=== PATIENT | female | born 1945 | race Caucasian/White ===

== ENCOUNTER 2017-06-28 08:46 | Day surgery (SDC) | payer OTHER ==
[~2017-06-28 08:46] MED LIST: VERSED ONE
[2017-06-28] MEDS ORDERED: NS 500 ML IV 500 ML IV ONE (09:14)
[2017-06-28] MEDS ORDERED: TETRACAINE 0.5% OPHTH 1 DOSE AFFEYE ONE ×5 (09:15→11:47)
[2017-06-28] MEDS ORDERED: VIGAMOX 0.5% OPHTH 1 DOSE AFFEYE ONE ×3 (09:20→09:30)
[2017-06-28] MEDS ORDERED: PROLENSA OPHTH 1 DOSE AFFEYE ONE (09:31)
[2017-06-28] MEDS ORDERED: ALPHAGAN-P OPHTH 1 DOSE AFFEYE ONE (09:32)
[2017-06-28] MEDS ORDERED: CYCLOGYL 1% OPHTH 1 DOSE OP ONE ×3 (09:33→09:35)
[2017-06-28] MEDS ORDERED: AK-DILATE 2.5% OPHTH 1 DOSE OP ONE ×3 (09:33→09:35)
[2017-06-28] MEDS ORDERED: MYDRIACIL OPHTH 1 DOSE AFFEYE ONE ×3 (09:33→09:35)
[2017-06-28] MEDS ORDERED: VERSED IVP ONE (11:15)
[2017-06-28] MEDS ORDERED: AK-DILATE 10% OPHTH 1 DOSE AFFEYE ONE (11:32)
[2017-06-28] MEDS ORDERED: BETADINE OPHTH SOLN 5% EACHEYE ONE (11:46)
[2017-06-28] MEDS ORDERED: VIGAMOX 0.5% AFFEYE ONE ×2 (11:48→12:04)
[2017-06-28] MEDS ORDERED: ADRENALINE CHL INJ IJ ONE (11:48)
[2017-06-28] MEDS ORDERED: XYLOCAINE-MPF 1% IJ ONE (11:48)
[2017-06-28] MEDS ORDERED: DUOVISC IO ONE (11:48)
[2017-06-28] MEDS ORDERED: BSS OPHTH (PLAIN) 500 ML with VANCOMYCIN HCL 500 MG VIAL 25 MG, ADRENALINE CHL INJ 1 MG IR ONE ×3 (11:49)
[2017-06-28 13:22] VITALS: BP 132/69
== END 2017-06-28 12:25 | disposition home or self-care (01) ==
LOC: SURG1 08:46
PROVIDERS: ATTEND Ophthalmology
PROC: 08RK3JZ Replacement of Left Lens with Synthetic Substitute, Percutaneous Approach (ICD-10-PCS; principal; 2017-06-28 12:45)
PROC: 08DK3ZZ Extraction of Left Lens, Percutaneous Approach (ICD-10-PCS; principal; 2017-06-28 12:45)
DX: H25.12 Age-related nuclear cataract, left eye (principal); H25.012 Cortical age-related cataract, left eye; H52.222 Regular astigmatism, left eye
CPT/HCPCS: 99100; J0170; J2250; J3370

== ENCOUNTER 2017-07-26 07:29 | Day surgery (SDC) | payer OTHER ==
[~2017-07-26 07:29] MED LIST changes: +TETRACAINE 0.5% OPHTH 1 DOSE AFFEYE ONE; -VERSED ONE; +VIGAMOX 0.5% OPHTH 1 DOSE AFFEYE ONE
[2017-07-26] MEDS ORDERED: VIGAMOX 0.5% OPHTH 1 DOSE AFFEYE ONE ×4 (07:30→10:51)
[2017-07-26] MEDS ORDERED: BROMDAY OPHTH 1 DOSE AFFEYE ONE (07:32)
[2017-07-26] MEDS ORDERED: ALPHAGAN-P OPHTH 1 DOSE AFFEYE ONE (07:34)
[2017-07-26] MEDS ORDERED: CYCLOGYL 1% OPHTH 1 DOSE OP ONE ×4 (07:35→07:45)
[2017-07-26] MEDS ORDERED: AK-DILATE 2.5% OPHTH 1 DOSE OP ONE ×4 (07:35→07:45)
[2017-07-26] MEDS ORDERED: MYDRIACIL OPHTH 1 DOSE AFFEYE ONE ×4 (07:35→07:45)
[2017-07-26] MEDS ORDERED: NS 500 ML IV 500 ML IV ONE (07:46)
[2017-07-26] MEDS ORDERED: VERSED ONE ×2 (08:12→09:56)
[2017-07-26] MEDS ORDERED: TETRACAINE 0.5% OPHTH 1 DOSE AFFEYE ONE ×4 (09:56→10:39)
[2017-07-26] MEDS ORDERED: AK-DILATE 10% OPHTH 1 DOSE AFFEYE ONE (10:12)
[2017-07-26] MEDS ORDERED: BETADINE OPHTH SOLN 5% EACHEYE ONE (10:22)
[2017-07-26] MEDS ORDERED: ADRENALINE CHL INJ IJ ONE ×2 (10:23→10:39)
[2017-07-26] MEDS ORDERED: XYLOCAINE-MPF 1% IJ ONE ×2 (10:23→10:39)
[2017-07-26] MEDS ORDERED: DUOVISC IO ONE ×2 (10:23→10:39)
[2017-07-26] MEDS ORDERED: BSS OPHTH (PLAIN) 500 ML with VANCOMYCIN HCL 500 MG VIAL 25 MG, ADRENALINE CHL INJ 1 MG IR ONE ×6 (10:24)
[2017-07-26 11:42] VITALS: BP 136/72
== END 2017-07-26 11:15 | disposition home or self-care (01) ==
LOC: SURG1 07:29
PROVIDERS: ATTEND Ophthalmology
PROC: 08DJ3ZZ Extraction of Right Lens, Percutaneous Approach (ICD-10-PCS; principal; 2017-07-26 10:30)
PROC: 08RJ3JZ Replacement of Right Lens with Synthetic Substitute, Percutaneous Approach (ICD-10-PCS; principal; 2017-07-26 10:30)
DX: H25.11 Age-related nuclear cataract, right eye (principal); H25.011 Cortical age-related cataract, right eye; H52.221 Regular astigmatism, right eye
CPT/HCPCS: 99100; A4217; J0170; J2250; J3370